=== PATIENT | female | born 1950 | race Caucasian/White ===

== ENCOUNTER 2017-09-05 01:01 | Day surgery (SDC) | payer MEDICARE, OTHER ==
[2017-09-05] VITALS (7 sets, daily range): BP systolic 98–150; BP diastolic 60–92
[~2017-09-05] VITALS: Ht 162.6 cm; Wt 67.1 kg
[~2017-09-05 01:01] MED LIST: FLU45SYR25 IM ONLY; LISI20TA29 PO; MULT-885 PO; MULT1CAP59 PO; VITAMINS; juice plus vitamins PO
[2017-09-05] MEDS ORDERED: NORMOSOL R SOLN(*) 1000 ML BAG 1,000 ML IV PRN (06:45)
[2017-09-05] MEDS ORDERED: ceFAZolin(*) 2GM/D5W 50ML 50 ML IVPB ONE (06:45)
[2017-09-05] MEDS ORDERED: LIDOCAINE/SOD BICARB 8.4% SYR ID ONE (06:45)
[2017-09-05] MEDS ORDERED: LIDOCAINE MPF 1% 5 ML VIAL ONE (11:15)
[2017-09-05] MEDS ORDERED: PROPOFOL EMUL(*) 10MG/ML 20 ML 60 ML ONE (11:15)
[2017-09-05] MEDS ORDERED: ROPIVACAINE 0.5% 20 ML VIAL ONE (12:41)
[2017-09-05] MEDS ORDERED: fentaNYL CITR 100 MCG/2 ML AMP ONE (12:44)
[2017-09-05] MEDS ORDERED: ONDANSETRON 4 MG/2 ML VIAL ONE (12:44)
[2017-09-05] MEDS ORDERED: MIDAZOLAM 2 MG/2 ML VIAL ONE (12:47)
[2017-09-05] MEDS ORDERED: PROPOFOL EMUL(*) 10MG/ML 20 ML 20 ML ONE (13:49)
[2017-09-05] MEDS ORDERED: OXYC-854 PO (14:08)
--- NOTE | 2017-09-05 14:11 | Short(Outpt) Discharge Summary ---
Discharge Summary Reason for Hosp/Final Diag: (1) Mass of subcutaneous tissue of back Status: Chronic Hospital Course & Plan: Mass excised from back without problems. (2) Colon cancer screening Status: Chronic Hospital Course & Plan: Colonoscopy with polypectomy x1 completed without problems. Departure Discharge to: Home, Self Care Discharge Instructions Home Meds Active Scripts Oxycodone Hcl/Acet 5/325 Mg (ENDOCET 5-325 TABLET) 1 Each Tablet, 1 TAB PO Q4H Y for PAIN, #20 TAB 0 Refills Prov:KRISSY DAVIES MD 09/05/17 Lisinopril (LISINOPRIL) 20 Mg Tablet, 1 TAB PO QDAY, #90 TAB Prov:TELLY SILVA MD 06/24/17 Reported Medications Multivitamin (MULTIVITAMINS) Unknown Strength Capsule, PO, CAPSULE 08/13/17 Follow up Referrals: General Surgery - 09/23/17 @ Surgery, General with Krissy Davies Md You have a follow up appointment scheduled with Dr. Davies on 09/23/17, at 11:15am. Diet: Regular Activity: As Tolerated Special Instructions: You may shower starting on 09/07/17. Leave the incision open to air but resist the tempation to peel off the hardened liquid dressing that I used to cover your incision in lieu of any dressings with adhesives due to your adhesive allergy. Do not immerse the incision for 2 weeks. KRISSY DAVIES MD Sep 05, 2017 14:11
--- NOTE | 2017-09-05 14:19 | Post Operative Progress Note ---
Post Operative Progress Note Date: Sep 05, 2017 Time: 14:11 Surgeon: Rickey -Dictation number: [id number] Anesthesia: TIVA by Dr. You Pre-Op Diagnosis: 1) subcutaneous mass on back 2) Colorectal Screening, Average risk Post-Op Diagnosis: ANGELIA Findings: 10cm multilobulated fatty tumor c/w lipoma Colon prep was excellent Procedure(s): Excision of subcutaneous mass from back Colonoscopy with snare polypectomy in rectum Specimen Removed:(May be N/A): 1) Mass, back 2) Polyp, rectum Complications: None Fluids: See anesthesia record Estimated Blood Loss: Minimal Date OP Note Dictated: Sep 05, 2017 Time OP Note Dictated: 14:13 KRISSY DAVIES MD Sep 05, 2017 14:19
[2017-09-05] MEDS ORDERED: HALOPERIDOL LACT 5 MG/ML VIAL IM ONE (14:43)
--- NOTE | 2017-09-05 16:18 | OPERATIVE REPORT 1 ---
EVENT DATE: September 05, 2017 SURGEON: Isidro Lang MD ANESTHESIOLOGIST: Patrice You MD ANESTHESIA: TIVA. PREOPERATIVE DIAGNOSES 1. Subcutaneous mass on back. 2. Colorectal cancer screening. POSTOPERATIVE DIAGNOSES 1. Subcutaneous mass on back. 2. Rectal polyp. PROCEDURES PERFORMED 1. Excision of subcutaneous mass from back. 2. Colonoscopy with snare polypectomy. COMPLICATIONS None. CONDITION Stable. BLOOD LOSS Minimal. FINDINGS Mass on the back was multi-lobulated and was about 10 cm in diameter in the greatest diameter. It was consistent with a benign lipoma. Her colon prep was excellent, and her only abnormality on colonoscopy was a small, less than 5 mm polyp in the distal rectum just above the sphincter muscles which was removed with a snare. INDICATIONS This is a 67-year-old female who presented to my office for colonoscopy. She is average risk. She also incidentally has a mass on her back that she would like to have removed at the same time. DESCRIPTION OF PROCEDURE The patient was brought to the operating room and placed in a right lateral decubitus position on the table, and TIVA was administered. Her back was prepped and draped in a sterile fashion. A timeout was completed, and I made a 10 cm incision overlying the mass after injecting the skin with 0.5% ropivacaine plain. I dissected through the dermis and subcutaneous fat and then dissected around the lipoma until I freed it up completely from the surrounding tissues. It was removed and passed off the field. The wound was made hemostatic with electrocautery and irrigated and dried, and then I closed the subcutaneous pocket with interrupted 3-0 Vicryl sutures, and the skin was closed with 3-0 Vicryl interrupted deep dermal sutures and 4-0 Monocryl in running subcuticular sutures. The skin was cleaned and dried, and the incision was covered with Dermabond. After the Dermabond was dry, she was placed in the left lateral decubitus position, and the colonoscope was set up and tested to ensure it was completely functional. Then, digital rectal exam was completed which was unremarkable. The colonoscope was lubricated and inserted into her rectum through the anus and then advanced all the way to the cecum and also the terminal ileum without any problems. I slowly withdrew the scope and looked at all mucosal surfaces for any abnormalities. When the scope was in the rectum, I retroflexed to look at the distal rectum and upper anal canal. I found a small polyp in the distal rectum, and this was removed easily with the snare with electrocautery. It was retrieved and sent to Pathology. I then desufflated the colon and removed the colonoscope from the patient's rectum. The prep was excellent. She was then transported to the recovery area in good condition having tolerated the procedures without any apparent problems. NANCIE
== END 2017-09-05 15:02 | disposition home or self-care (01) ==
LOC: OR 01:01
PROVIDERS: ATTEND Surgery
DX: Z12.11 Encounter for screening for malignant neoplasm of colon (principal); D17.1 Benign lipomatous neoplasm of skin and subcutaneous tissue of trunk; K62.1 Rectal polyp
CPT/HCPCS: 00811; 11406; 45385; 88305; J2001; J2250; J2405; J2704; J2795; J3010; J0690; J1630

== ENCOUNTER → 2018-10-30 | Outpatient (CLI) | payer MEDICARE, OTHER ==
[~2018-10-30] MED LIST changes: +FLU180SY11 IM; +GABA-547 PO; +OXYC-854 PO; +PNEU0.5D3 IM
== END ==
LOC: RAD 11:18
PROVIDERS: ATTEND Emergency Medicine
DX: M85.852 Other specified disorders of bone density and structure, left thigh (principal)

== ENCOUNTER → 2018-11-03 | Outpatient (CLI) | payer MEDICARE, OTHER ==
--- NOTE | 2018-11-03 16:25 | RADIOLOGY IMAGING REPORT ---
FACILITY: [facility] [place]IENT NAME: Lottie Hu : 1950 MR: [id number] V: [id number] EXAM DATE: ORDERING PHYSICIAN: JOSH SHI TECHNOLOGIST: Location: [facility] - [place] Patient: Lottie Hu : 1950 Visit/Account:[id number] Date of Sevice: 11/03/2018 DEXA Scan Clinical history: Asymptomatic postmenopausal estrogen deficiency. Comparison: None available. LUMBAR SPINE: The bone mineral density (BMD) measured from L1-L4 correlates with a Z-score 0.8 and a T-score of -0. 7 which is Normal as defined by the World Health Organization. The corresponding risk of fracture in the lumbar spine is 1-2 times increased compared with a young adult reference population. HIP: Bone mineral density (BMD) measured in the Left total hip region correlates with a Z-score -0.5 and a T-score of -1.7 which is osteopenia as defined by the World Health Organization. The corresponding risk of fracture in the hip is 3-4 times increased compared with a young adult reference population. T score left femoral neck -2 Bone mineral density (BMD) measured in the Femoral Neck region measures 0.754 g/cm2. Impression: 1. Lumbar spine: Normal. 2. Left Hip: Osteopenia. 3. Femoral Neck: Bone Mineral Density is 0.754 g/cm2 The next DEXA scan of this patient should include the following sites: L1-L4 and the left hip. FRAX? WHO Fracture Risk Assessment Tool link: <http://www.shef.ac.uk/FRAX/tool.jsp?locationValue=9> PLEASE NOTE: 1) The World Health Organization defines low BMD as follows: T-score Normal > -1 Osteopenia < -1 and > -2.5 Osteoporosis < -2.5 without fractures Established osteoporosis < -2.5 with fractures 2) In general, you may wish to consider: Diagnosis Treatment Follow-up DEXA Normal BMD Prevention 2-3 years Osteopenia Prevention/therapy 1-2 years Osteoporosis Therapy Yearly 3) Fracture risk estimated from the T-score is more accurate for vertebral fractures (often spontane ous) than for hip fractures. Report Dictated By: Aracelis Adame MD at 11/03/2018 4:15 PM Report E-Signed By: Aracelis Adame MD at 11/03/2018 4:16 PM WSN:[email or web address]
== END ==
LOC: RAD 03:49
PROVIDERS: ATTEND Emergency Medicine
DX: Z13.820 Encounter for screening for osteoporosis (principal); M85.88 Other specified disorders of bone density and structure, other site
CPT/HCPCS: 77080